=== PATIENT | male | born 1945 | race Caucasian/White ===

== ENCOUNTER 2017-07-01 13:10 | Inpatient (IN) | payer OTHER ==
[~2017-07-01] VITALS: Ht 172.7 cm; Wt 69.8 kg
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
--- NOTE | 2017-07-01 14:15 | NUR ---
PT TAKEN TO CT SCAN VIA [facility]
--- NOTE | 2017-07-01 14:59 | NUR ---
PT CLEARED FROM C SPINE
--- NOTE | 2017-07-01 15:05 | NUR ---
ALL TEST RESULTS COMPLETE, PATIENT READY FOR MD RE-EVALUATION.
[2017-07-01 15:50] LABS: BASOPHIL % 0.1 % (0-2); PLATELET COUNT 226 x10^3mcL (130-400); RED CELL DISTRIBUTION WIDTH 13.8 % (11.5-14.5)
[2017-07-01 15:59] LABS: CALCIUM 9.4 mg/dL (8.5-10.1); CARBON DIOXIDE 29.5 mmol/L (21-32); CHLORIDE SERUM 102 mmol/L (98-107); GLUCOSE SERUM 114 mg/dL (74-106); POTASSIUM SERUM 4.1 mmol/L (3.5-5.1); SODIUM SERUM 140 mmol/L (136-145)
[2017-07-01] MEDS ORDERED: HYZAAR 100-251 EACH PO (16:04)
[2017-07-01 16:05] LABS: ALBUMIN 4.3 g/dL (3.4-5.0); ALKALINE PHOSPHATASE 55 U/L (46-116); ALT/SGPT 40 U/L (16-63); AST/SGOT 32 U/L (15-37); BILIRUBIN TOTAL 0.72 mg/dL (0.20-1.00)
[2017-07-01] MEDS ORDERED: METFORMIN HCL500 MG PO ×2 (16:05→16:24)
--- NOTE | 2017-07-01 16:05 | NUR ---
MRSA SPECIMEN TAKEN AND SENT TO THE [facility]
[2017-07-01] MEDS ORDERED: VITAMIN D310000 UNI1 PO (16:06)
[2017-07-01] MEDS ORDERED: B COMPLETE1 EACH PO (16:06)
--- NOTE | 2017-07-01 16:06 | NUR ---
MRSA SPECIMEN TAKEN AND SENT TO LAB
[2017-07-01 16:07] LABS: TOTAL PROTEIN, SERUM 8.3 g/dL (6.4-8.2)
[2017-07-01] MEDS ORDERED: FISH OIL PO (16:07)
[2017-07-01] MEDS ORDERED: VITAMIN K PO (16:07)
[2017-07-01] MEDS ORDERED: CO Q-10300 MG PO (16:07)
--- NOTE | 2017-07-01 16:08 | NUR ---
MED REC COMPLETED PER PT'S VERBAL.
[2017-07-01 16:15] LABS: MAGNESIUM 1.9 mg/dL (1.8-2.4); PHOSPHOROUS 3.3 mg/dL (2.5-4.9)
[2017-07-01 16:16] LABS: CHOLESTEROL/HDL RATIO 4.6; T3 TOTAL 1.01 ng/mL
[2017-07-01] MEDS ORDERED: LANSOPRAZOLE30 M2 PO (16:25)
[2017-07-01] MEDS ORDERED: GLIMEPIRIDE1 M1 PO (16:25)
[2017-07-01 16:26] LABS: FREE T4 1.03 ng/dL (0.76-1.46); FREE THYROXINE INDEX 2.8 ug/dL (1.4-4.5); T4(THYROXINE) 7.4 ug/dL (4.7-13.3)
--- NOTE | 2017-07-01 16:27 | NUR ---
JULISA JONAS RN AT BEDSIDE PERFORMING ADMISSION ASSESSMENT.
[2017-07-01 16:40] VITALS: BP 120/76
--- NOTE | 2017-07-01 16:45 | NUR ---
ABDOMINAL BINDER APPLIED TO PT.'S ABDOMEN.
--- NOTE | 2017-07-01 16:48 | NUR ---
RECEIVED PATIENT FROM ED VIA GUERNEY, PATIENT ALERT AND ORIENTED SON AT BEDSIDE, TELE # 9 SR, IV ACCESS TO RFA WNL, C/O PAIN TO CHEST/STERNUM AREA, WILL MEDICATE ORDERED, ORIENTED PATIENT TO ROOM AND SURROUNDINGS, BED RAILS UP X 2, CALL LIGHT WITHIN REACH, WILL ENDORSE CARE TO PRIMARY NURSE CARIE KNIGHT
--- NOTE | 2017-07-01 18:10 | NUR ---
REMAINS IN STABLE CONDITION AT THIS TIME. NO ACUTE DISTRESS NOTED.
--- NOTE | 2017-07-01 19:20 | NUR ---
PT ALERT/ORIENTED X4. PT C/O STERNAL PAIN. PT REFUSES PAIN MED AT THIS TIME. PT WILL LET STAFF KNOW WHEN WOULD LIKE PAIN MED. TELE # 9, SR WITH OCCASIONAL PVC'S, HR; 78. PT DOES NOT HAVE THE ABD BINDER ON AT THIS TIME, EDUCATED PT ON THE IMPORTANCE OF THE ABD BINDER; PT STILL REFUSED; STATED HE WILL PUT IT ON "LATER". WILL CONTINUE TO MONITOR.
--- NOTE | 2017-07-01 20:48 | NUR ---
PT C/O NECK PAIN. REQUESTING "AMANDA ESTRADA" PAGE [facility]ATE TO DR GARICA AND INFORMED HER OF PT REQUEST.
[2017-07-01 20:49] VITALS: BP 113/71
--- NOTE | 2017-07-01 21:12 | NUR ---
PT C/O NECK/AND STERNAL PAIN. RATES THE PAIN A 4/10 ON THE PAIN SCALE OF 1/10. APPLIED BENGAY TO THE NECK. MEDICATED WITH TORADOL PER MD PRN ORDER. WILL CONTINUE TO MONITOR.
[2017-07-01 21:21] LABS: microscopic required? NO
[2017-07-01 21:24] LABS: urine erythrocyte NEGATIVE (NEGATIVE)
--- NOTE | 2017-07-01 22:54 | NUR ---
PT SLEEPING. 2111; BENGAY WAS APPLIED TO THE BACK OF THE NECK FOR PAIN. 2112;PT ALSO MEDICATED FOR STERNAL PAIN (SEE EMAR). WILL CONTINUE TO MONITOR.
--- NOTE | 2017-07-02 01:30 | NUR ---
PT SLEEPING. NO DISTRESS NOTED. WILL CONTINUE TO MONITOR.
--- NOTE | 2017-07-02 03:41 | NUR ---
PT SLEEPING. NO DISTRESS NOTED. WILL CONTINUE TO MONITOR.
--- NOTE | 2017-07-02 05:12 | NUR ---
PT SLEPT IN LONG INTERVALS THROUGHOUT THE NIGHT. PT C/O STERNAL AND BACK OF THE NECK PAIN 1X DURING THIS SHIFT AND WAS MEDICATED FOR THE PAIN (SEE EMAR). WILL CONTINUE TO MONITOR.
[2017-07-02 06:05] VITALS: BP 106/63
[2017-07-02 07:01] LABS: BASOPHIL % 0.3 % (0-2); PLATELET COUNT 196 x10^3mcL (130-400); RED CELL DISTRIBUTION WIDTH 14.3 % (11.5-14.5)
[2017-07-02 07:26] LABS: CALCIUM 8.5 mg/dL (8.5-10.1); CARBON DIOXIDE 29.4 mmol/L (21-32); CHLORIDE SERUM 103 mmol/L (98-107); CREATININE SERUM 1.2 mg/dL (0.7-1.3); GLUCOSE SERUM 94 mg/dL (74-106); POTASSIUM SERUM 4.1 mmol/L (3.5-5.1); SODIUM SERUM 138 mmol/L (136-145)
--- NOTE | 2017-07-02 07:43 | NUR ---
PT RECEIVED DURING CHANGE OF SHIFT, A/OX4, TELE 9, C/O CHEST PAIN 09/03, STATES TOLERABLE, STATES EXACERBATED BY MOVEMENT, STATES WHEN HE SNEEZES IT CAUSES A LOT OF PAIN, PULSES PRESENT, NO EDEMA, LUNG SOUNDS ACTIVE, DENIES SOB, BREATHING EVEN AND UNLABORED, BOWEL SOUNDS ACTIVE, ABLE TO VOID, BRP, AMBULATORY, DENIES ALL OTHER PAIN, IV TO RFA INFUSING NS AT 50ML/HR, CALL LIGHT WITHIN REACH, WILL COTNINUE TO MONITOR.
--- NOTE | 2017-07-02 08:33 | NUR ---
PT DENIES SOB, DENIES PAIN, REFUSED HYDROCHOLOROTHIAZIDE, REFUSED LIPITOR, CALL LIGHT WITHIN REACH, WILL CONTINUE TO MONITOR.
--- NOTE | 2017-07-02 09:17 | NUR ---
PT DENIES SOB, STATES C/P TOLERABLE, CALL LIGHT WITHIN REACH, WILL CONTINUE TO MONITOR.
[2017-07-02 09:29] VITALS: BP 126/71
--- NOTE | 2017-07-02 09:50 | NUR ---
DR. MANCILLA AND RESIDENTS MAKING ROUNDS, PLAN OF CARE DISCUSSED.
--- NOTE | 2017-07-02 10:03 | NUR ---
PT ON PERSONAL PHONE, NO INDICATION OF PAIN, BREATHING EVEN AND UNLABORED, CALL LIGHT WITHIN REACH, WILL CONTINUE TO MONITOR.
--- NOTE | 2017-07-02 11:19 | NUR ---
PT DENIES SOB, C/O CHEST PAIN 10 UPON MOVEMENT, REQUESTED MEDICATION, WILL MEDICATE PER EMAR, CALL LIGHT WITHIN REACH, WILL CONTINUE TO MONITOR.
--- NOTE | 2017-07-02 12:32 | NUR ---
PT ON PERSONAL PHONE, NO INDICATION OF PAIN, BREATHING EVEN AND UNLABORED, CALL LIGHT WITHIN REACH, WILL CONTINUE TO MONITOR.
--- NOTE | 2017-07-02 13:25 | NUR ---
PT ON PERSONAL PHONE, NO INDICATION OF PAIN, BREATHING EVEN AND UNLABORED, CALL LIGHT WITHIN REACH, WILL CONTINUE TO MONITOR.
--- NOTE | 2017-07-02 14:12 | NUR ---
HALEY BETANCUR AT BEDSIDE, TAKING VITALS, VISITOR AT BEDSIDE, CALL LIGHT WITHIN REACH, WILL CONTINUE TO MONITOR.
[2017-07-02 14:53] VITALS: BP 104/59
--- NOTE | 2017-07-02 15:32 | NUR ---
PT DENIES SOB, DENIES PAIN, VISITORS AT BEDSIDE, CALL LIGHT WITHIN REACH, WILL CONTINUE TO MONITOR.
--- NOTE | 2017-07-02 16:26 | NUR ---
PT DENIES SOB, DENIES PAIN, BS 86, NO COVERAGE NEEDED, PT REFUSED METFORMIN STATING "I ONLY TAKE IT ONCE A DAY, I WILL NOT TAKE IT A SECOND TIME TODAY.", CALL LIGHT WITHIN REACH, WILL CONTINUE TO MONITOR.
[2017-07-02 17:15] VITALS: BP 122/70
[2017-07-02 17:20] LABS: AMPHETAMINE QUAL UR NONE DETECTED (NEG <=1000)
--- NOTE | 2017-07-02 17:24 | NUR ---
PT ON PERSONAL PHONE, NO INDICATION OF PAIN, BREATHING EVEN AND UNLABORED, CALL LIGHT WITHIN REACH, WILL CONTINUE TO MONITOR.
--- NOTE | 2017-07-02 18:24 | NUR ---
PT C/O CHEST PAIN 02/01, WILL MEDICATE PER EMAR, DENIES SOB, CALL LIGHT WITHIN REACH, WILL ENDORSE TO NEXT SHIFT.
[2017-07-02 19:20] VITALS: BP 122/64
--- NOTE | 2017-07-02 19:45 | NUR ---
RECEIVED PT AWAKE ALERT AND VERBALLY RESPONSIVE.DENIES ANY PAIN AT THIS TIME,JUST MEDICATED BY AM NURSE WITH TORADOL.C/O PAIN ON MOVEMENT.ABDOMINAL BINDER IN PLACED.DISCUSSED PAIN MGT TONIGHT AND AGREEABLE.WILL CONTINUE TO MONITOR.
--- NOTE | 2017-07-03 04:56 | NUR ---
PT SLEPT WELL ALL NIGHT.DENIES ANY PAIN OR DISCOMFORT.ABDOMINAL BINDER IN PLACED.WITH BRP.ALL NEEDS MET.WILL CONTINUE TO MONITOR.
[2017-07-03 05:44] VITALS: BP 112/63
--- NOTE | 2017-07-03 07:35 | NUR ---
RECEIVED PATIENT AWAKE/ALERT NO DISTRESS NOTED, PATIENT STATE PAIN TO CHEST 3/10 AT REST. DON'T WANT ANY PAIN MEDS AT THIS TIME. POC EXPLAINED. TELE#[address] IV INTACT AND PATENT; CALL LIGHT WITHIN REACH.
--- NOTE | 2017-07-03 09:05 | NUR ---
PATIENT SIT UP IN CHAIR NO DISTRESS NOTED, ALL MEDS GIVEN; PATIENT C/O PAIN TO CHEST 12/02; EXPLAINED OPTION FOR MEDICATE; NORCO 7.5/325MG PO GIVEN; NEEDS ANTICIPATED.
[2017-07-03 09:41] VITALS: BP 136/81
--- NOTE | 2017-07-03 10:02 | NUR ---
PATIENT AMBULATE IN HALLWAY; ASKING NURSE TO REMOVE TELE BOX; STUDENT MAG REMOVE TELE BOX AND RETURN TO TELE ROOM. PATIENT STATE PAIN IS BETTER. CONT TO MONITOR.
[2017-07-03] MEDS ORDERED: IBUPROFEN800 MG PO (10:09)
[2017-07-03] MEDS ORDERED: NORCO1 TA2 PO (10:09)
[2017-07-03 10:38] VITALS: BP 136/81
[2017-07-03] MEDS ORDERED: GLYBURIDE1.25 MG PO (10:56)
--- NOTE | 2017-07-03 11:18 | NUR ---
PATIENT REMAIN SAT UP IN CHAIR; DISCHARGE INSTRUCTIONS AND PRESCRIPTION EXPLAINED; PATIENT VERBALIZE UNDERSTAND AND F/U WITH PCP OR DR. FARIA 07/08/17 @ 2 PM. INSTRUCT PATIENT TO GET CHEST BINDER TO HELP WITH PAIN CONTROL WHILE STERNUM HEALS. IV DC'D BY STUDENT MAG; BA APPLIED TO SITE. PATIENT WAITING FOR FAMILY.
--- NOTE | 2017-07-03 11:45 | NUR ---
PATIENT WHEEL OUT BY FLANGING MACHINE OPERATOR WITH ALL BELONGINGS.
== END 2017-07-03 11:45 | disposition home or self-care (01) | DRG 184 ==
LOC: ED 13:10 → DU 15:15
PROVIDERS: Specialist; ADMIT Family Medicine Sports Medicine
DX: S22.22XA Fracture of body of sternum, initial encounter for closed fracture (principal); D68.69 Other thrombophilia; E11.9 Type 2 diabetes mellitus without complications; S13.4XXA Sprain of ligaments of cervical spine, initial encounter; D64.9 Anemia, unspecified; K21.9 Gastro-esophageal reflux disease without esophagitis; E78.5 Hyperlipidemia, unspecified; D72.829 Elevated white blood cell count, unspecified; I10 Essential (primary) hypertension; Z68.23 Body mass index [BMI] 23.0-23.9, adult; Z79.84 Long term (current) use of oral hypoglycemic drugs; Y93.89 Activity, other specified; V47.1XXA Car passenger injured in collision with fixed or stationary object in nontraffic accident, initial encounter; Y92.414 Local residential or business street as the place of occurrence of the external cause
CPT/HCPCS: 82962; 83880; 84439; J1170; J1885; J2405; J7030; Q0092

== ENCOUNTER 2020-02-20 15:19 | Emergency (ER) | payer OTHER ==
[~2020-02-20] VITALS: Ht 167.6 cm; Wt 68.0 kg
[~2020-02-20 15:19] MED LIST: B COMPLETE1 EACH PO; CO Q-10300 MG PO; FISH OIL PO; GLIMEPIRIDE1 M1 PO; GLYBURIDE1.25 MG PO; HYZAAR 100-251 EACH PO; IBUPROFEN800 MG PO; LANSOPRAZOLE30 M2 PO; METFORMIN HCL500 MG PO; NORCO1 TA2 PO; VITAMIN D310000 UNI1 PO; VITAMIN K PO
[2020-02-20 16:24] VITALS: Ht 167.6 cm; Wt 68.0 kg
[2020-02-20 16:48] LABS: microscopic required? NO
[2020-02-20 17:13] LABS: CALCIUM 8.9 mg/dL (8.5-10.1); CHLORIDE SERUM 97 mmol/L (98-107); CREATININE SERUM 1.3 mg/dL (0.7-1.3); GLUCOSE SERUM 138 mg/dL (74-106); POTASSIUM SERUM 3.8 mmol/L (3.5-5.1); SODIUM SERUM 133 mmol/L (136-145)
[2020-02-20 17:14] LABS: BASOPHIL % 0.2 % (0-2); PLATELET COUNT 249 x10^3mcL (130-400)
[2020-02-20 17:23] LABS: RED CELL DISTRIBUTION WIDTH 14.7 % (11.5-14.5)
[2020-02-20 17:25] LABS: UA SPECIFIC GRAVITY 1.015 (1.005-1.035); urine erythrocyte NEGATIVE (NEGATIVE)
[2020-02-20 17:25] LABS: ALBUMIN 4.2 g/dL (3.4-5.0); ALKALINE PHOSPHATASE 53 U/L (46-116); ALT/SGPT 19 U/L (16-63); AST/SGOT 13 U/L (15-37); BILIRUBIN TOTAL 0.6 mg/dL (0.20-1.00); FREE T4 0.98 ng/dL (0.76-1.46); MAGNESIUM 1.9 mg/dL (1.8-2.4); TOTAL PROTEIN, SERUM 7.5 g/dL (6.4-8.2)
[2020-02-20 18:33] VITALS: BP 141/84
== END 2020-02-20 18:20 | disposition home or self-care (01) ==
LOC: ED 15:19
PROVIDERS: Emergency Medicine
DX: R53.83 Other fatigue (principal); R41.0 Disorientation, unspecified; I10 Essential (primary) hypertension
CPT/HCPCS: 84439; G0480; J8597